=== PATIENT | male | born 1995 | race Caucasian/White ===

== ENCOUNTER 2024-02-09 09:43 | Emergency (ER) | payer OTHER ==
[~2024-02-09] VITALS: Ht 177.8 cm; Wt 82.7 kg
[2024-02-09] MEDS ORDERED: Acetaminophen/Oxycodone 5 MG/325 MG TABLET PO ONE (11:10)
[2024-02-09] MEDS ORDERED: MELOXICAM15 MG PO (11:18)
== END 2024-02-09 11:23 | disposition home or self-care (01) ==
LOC: ED 09:43 → EDBD 09:47 → ED 11:23
DX: M25.512 Pain in left shoulder (principal); M54.2 Cervicalgia; V80.010A Animal-rider injured by fall from or being thrown from horse in noncollision accident, initial encounter; Y93.89 Activity, other specified; Y92.89 Other specified places as the place of occurrence of the external cause; Y99.8 Other external cause status